=== PATIENT | male | born 1945 | race Caucasian/White ===

== ENCOUNTER 2016-10-24 05:56 | Day surgery (SDC) | payer MEDICARE, OTHER ==
[2016-10-22 08:03] LABS: HEMATOCRIT 32.5 % (40.0-51.0); HEMOGLOBIN 10.9 g/dL (13.6-17.8)
[2016-10-22 08:16] LABS: BUN (BLOOD UREA NITROGEN) 25 MG/DL (6-23); CALCIUM, SERUM 8.9 MG/DL (8.5-10.4); CHLORIDE, SERUM 104 MMOL/L (96-112); CO2 (CARBON DIOXIDE) 28 MMOL/L (24-34); CREATININE 1.57 MG/DL (0.70-1.30); GFR AFRICAN AMERICAN 51 ML/MIN (>=60); GFR NON AFRICAN AMERICAN 44 ML/MIN (>=60); GLUCOSE, SERUM 128 MG/DL (60-99); POTASSIUM, SERUM 4.1 MMOL/L (3.5-5.3); SODIUM, SERUM 140 MMOL/L (135-148)
[~2016-10-24] VITALS: Ht 177.8 cm; Wt 85.0 kg
--- NOTE | ~2016-10-24 | OP ---
Record Of Operation [address] [place]. [address] NAME: BALDEV RENTERIA JR : 45 STATUS : [facility]#: [id number] AGE: 71 ADM/REG DATE : 10/24/16 MR#: [id number] REPORT SERV DATE: 10/25/16 DICTATED BY: TRAY MANRIQUEZ DATE: 10/24/16 REPORT STATUS : Draft TRANSCRIBED BY: MODL DATE: 10/24/16 DATE OF PROCEDURE: 10/24/2016 SURGEON: Tray Manriquez MD OPERATIVE SUBSTATION WIREMAN: CAROLIN Brown COMPLICATIONS: None. ESTIMATED BLOOD LOSS: Minimal. DISPOSITION: Stable to recovery room. ANESTHESIA: General. PREOPERATIVE DIAGNOSES: 1. Right shoulder pain. 2. Partial-thickness supraspinatus rotator cuff tear. 3. Subacromial impingement. 4. Degenerative labrum. 5. Biceps tenosynovitis. 6. Acromioclavicular joint osteoarthritis. POSTOPERATIVE DIAGNOSES: 1. Right shoulder pain. 2. High-grade partial-thickness bursal-sided supraspinatus rotator cuff tear. 3. Degenerative labral tear. 4. Subacromial impingement. 5. Acromioclavicular joint osteoarthritis with impingement. OPERATIVE PROCEDURE: 1. Right shoulder examination under anesthesia. 2. Right shoulder arthroscopy. 3. Limited debridement of degenerative labral tear. 4. High-grade partial thickness bursal-sided [id number]-nx-[id number] supraspinatus rotator cuff repair. 5. Subacromial decompression. 6. Distal clavicular resection (approximately 1 cm). The diagnoses listed above as well as the recommended surgical procedure, risks, and benefits thereof were discussed in full detail with Baldev Renteria and family in the morning of 10/24/2016. The patient and family asked appropriate questions, which were answered to their satisfaction. Informed consent was signed, witnessed, and placed in the chart. The right upper extremity was marked for confirmation. The patient was wheeled to the operative arena where general anesthesia was administered. The patient was placed in lateral decubitus position with an axillary roll in place and all nonoperative extremities were well Record Of Operation [address] [place]. [address] NAME: BALDEV RENTERIA JR : 45 STATUS : [facility]#: [id number] AGE: 71 ADM/REG DATE : 10/24/16 MR#: [id number] REPORT SERV DATE: 10/25/16 DICTATED BY: TRAY MANRIQUEZ DATE: 10/24/16 REPORT STATUS : Draft TRANSCRIBED BY: ALICIA DATE: 10/24/16 padded and secured for the duration of the case. The right upper extremity was examined under anesthesia and then placed in 5 pounds of longitudinal traction, and prepped and draped in typical orthopedic sterile fashion. A surgical pause was performed confirming both correct patient as well as the proper surgical site and procedure. All present were in agreement. The patient received appropriate antibiotics for perioperative antibiosis. All standard anatomic landmarks as well as arthroscopic portal sites were demarcated using a sterile marking pen. 15 mL of 0.5% Marcaine with epinephrine was injected in standard posterior, lateral, and anterior portal sites. An 11 blade was used to establish the posterior portal through which an arthroscopic cannula and blunt obturator were inserted atraumatically into the glenohumeral joint. A full diagnostic arthroscopy was performed. There was evidence for degenerative labral tearing posteriorly, superiorly, and anteriorly. There was early degenerative scuffing of the superior aspect of the articular surface of the glenoid. The humeral head looked healthy by comparison. The subscapularis, middle and inferior glenohumeral ligaments were healthy and intact. The axillary pouch was within normal limits. There was evidence for low-grade partial-thickness articular-sided supraspinatus rotator cuff tearing; however, the infraspinatus appeared to be in good condition. Using an inside-out approach, an anterior portal was established and dammed cannula was placed. An arthroscopic shaver was used to perform a limited debridement of all degenerative labral tearing, trimming it back down to a stable rim flush with the articular surface of the glenoid. The biceps itself was healthy as it traversed in the bicipital groove and there was no instability at its insertion on the labral complex. The arthroscope was then withdrawn from the glenohumeral joint and inserted into the subacromial space. There was evidence for significant bursal-sided wear on supraspinatus rotator cuff tendon with a longitudinal high-grade partial thickness tear. An arthroscopic shaver was used to perform a debridement of all damaged rotator cuff tissue. All soft tissue was then removed from the undersurface of the acromion. There was a definite narrowing in the subacromial space and obvious mechanical impingement on the bursal surface of the rotator cuff tendon. There was also hypertrophic arthritic change of the acromioclavicular joint with downward reflection of distal clavicle and mechanical impingement as well. A iva was used to perform a full subacromial decompression without difficulty. This opened up the subacromial space nicely. A distal clavicular resection of the distal most 7 mm of clavicle and 2-3 mm of acromion was performed opening up the acromioclavicular joint as well. All downward projecting spurs were removed as well. At this juncture, a [id number] high-grade partial thickness supraspinatus rotator cuff repair was performed using PDS sutures. These were tied down and closing the longitudinal tearing of the supraspinatus rotator cuff tendon upon itself. The repair was tested and found to be very secure without any instability whatsoever. At this juncture, all arthroscopic instruments, excess fluid, and debris were removed from the subacromial space. The portals were closed with 3-0 Monocryl in the subcuticular layers and Steri-Strips on the skin. Sterile dressing was secured with Medipore tape. The patient was then placed in an UltraSling for temporary immobilization. He was then awakened from Record Of Operation [address] [place]. [address] NAME: BALDEV RENTERIA JR : 45 STATUS : [facility]#: [id number] AGE: 71 ADM/REG DATE : 10/24/16 MR#: [id number] REPORT SERV DATE: 10/25/16 DICTATED BY: TRAY MANRIQUEZ DATE: 10/24/16 REPORT STATUS : Draft TRANSCRIBED BY: MODL DATE: 10/24/16 anesthesia without difficulty and transferred to the postanesthesia care unit in stable condition, where his postoperative exam was within normal limits understanding that his interscalene block was still in effect. A lengthy discussion was held with the patient's family detailing all operative findings as well as procedures performed with all questions answered to their satisfaction. CCS/MODL Tray Manriquez M.D. / [id number] CC: Morris Fitzpatrick M.D.
[~2016-10-24 05:56] MED LIST: ASAB PO; COREG6 PO; ELIQUIS 5 MG TAB5 MG PO; IMDUR60 PO; KOMBIGLYZE XR1 EAC2 PO; L20 PO; LAN125 PO; PLAVIX PO; PRILO PO; RYTHMOL225 MG PO; TESTOSTERONE; TRESIBA FL100 UNIT/1 SC; ZOCOR20 PO
== END 2016-10-24 15:57 | disposition home or self-care (01) ==
LOC: SDC 05:56
PROVIDERS: Specialist
PROC: 0LQ14ZZ Repair Right Shoulder Tendon, Percutaneous Endoscopic Approach (ICD-10-PCS; 2016-10-24)
PROC: 0PB94ZZ Excision of Right Clavicle, Percutaneous Endoscopic Approach (ICD-10-PCS; 2016-10-24)
PROC: 0RBJ4ZZ Excision of Right Shoulder Joint, Percutaneous Endoscopic Approach (ICD-10-PCS; principal; 2016-10-24 08:15)
PROC: 0RNJ4ZZ Release Right Shoulder Joint, Percutaneous Endoscopic Approach (ICD-10-PCS; 2016-10-24 08:15)
DX: M75.111 Incomplete rotator cuff tear or rupture of right shoulder, not specified as traumatic (principal); S43.431A Superior glenoid labrum lesion of right shoulder, initial encounter; M75.41 Impingement syndrome of right shoulder; M19.011 Primary osteoarthritis, right shoulder; I10 Essential (primary) hypertension; E11.9 Type 2 diabetes mellitus without complications; G47.33 Obstructive sleep apnea (adult) (pediatric); Z99.89 Dependence on other enabling machines and devices; Z95.810 Presence of automatic (implantable) cardiac defibrillator; Z82.49 Family history of ischemic heart disease and other diseases of the circulatory system; Z80.9 Family history of malignant neoplasm, unspecified; Z90.89 Acquired absence of other organs; Z95.1 Presence of aortocoronary bypass graft; Z98.890 Other specified postprocedural states; Z88.2 Allergy status to sulfonamides; Z79.01 Long term (current) use of anticoagulants; Z79.02 Long term (current) use of antithrombotics/antiplatelets; Z79.4 Long term (current) use of insulin; Z79.82 Long term (current) use of aspirin; Z79.84 Long term (current) use of oral hypoglycemic drugs; Z79.899 Other long term (current) drug therapy; X58.XXXA Exposure to other specified factors, initial encounter
CPT/HCPCS: 80048; 82962; 85014; 85018; 93005; A9270-GY; J0690; J2250; J2270; J2405; J2550; J2710; J3010